=== PATIENT | female | born 1970 | race Caucasian/White ===

== ENCOUNTER 2022-04-01 16:57 | Emergency (ER) | payer OTHER ==
[2022-04-01 17:53] LABS: RED BLOOD COUNT 4.8 M/UL (4.00-5.10); WHITE BLOOD COUNT 17.5 K/UL (4.5-11.0)
[2022-04-01] MEDS ORDERED: ZOFRAN ODT 4 MG4 MG PO (20:29)
[2022-04-01] MEDS ORDERED: BENTYL 20MG TAB20 MG PO (20:29)
== END 2022-04-01 20:49 | disposition home or self-care (01) ==
LOC: ER1 16:57
PROVIDERS: Physician Assistant
DX: R10.84 Generalized abdominal pain (principal); R10.817 Generalized abdominal tenderness; R11.0 Nausea; F17.210 Nicotine dependence, cigarettes, uncomplicated; Z88.8 Allergy status to other drugs, medicaments and biological substances
CPT/HCPCS: 80053; 81001; 82550; 82553; 83690; 84484; 84703; 85025; 87086; 93005; 99284; Q9967